=== PATIENT | male | born 1985 | race Caucasian/White ===

== ENCOUNTER 2024-01-06 16:18 | Emergency (ER) | payer OTHER, MEDICAID ==
[~2024-01-06] VITALS: Ht 170.2 cm; Wt 81.6 kg
[2024-01-06 16:26] VITALS: BP 102/70; PULSE 78; RESP 16; TEMP 98.1; O2SAT 98
[2024-01-06 17:02] VITALS: O2SAT 97
[2024-01-06 20:45] VITALS: PULSE 74; RESP 18; O2SAT 95; O2SAT 96
[2024-01-06 21:06] VITALS: O2SAT 95
== END 2024-01-06 19:52 | disposition home or self-care (01) ==
LOC: MED 16:18
DX: K94.23 Gastrostomy malfunction (principal)
CPT/HCPCS: 43762; 74018; 99283; 99284